=== PATIENT | male | born 1945 | race Caucasian/White ===

== ENCOUNTER 2017-12-27 14:53 | Emergency (ER) | payer OTHER ==
[~2017-12-27 14:53] MED LIST: HYDR1TAB2 PO; METF-384 PO; OMEP20CA9 PO; SIMV20TA5 PO; TAMS0.4C59 PO; TRAM-453 PO
[2017-12-27 15:09] VITALS: Ht 182.9 cm
[2017-12-27] MEDS ORDERED: BUPIVACAINE 0.25% 30 ML VIAL ONE (15:41)
[2017-12-27] MEDS ORDERED: BUPIVACAINE 0.5 % 5 MG/1 ML MPF 30ML VIAL INFIL ONE (15:45)
[2017-12-27] MEDS ORDERED: LIDOCAINE 1% BUFFERED INJ 20 ML VIAL INFIL ONE (15:45)
[2017-12-27] MEDS ORDERED: ROSU5TAB PO (15:51)
[2017-12-27] MEDS ORDERED: EMPA1TAB3 PO (15:51)
[2017-12-27] MEDS ORDERED: TAMS0.4C38 PO (15:51)
[2017-12-27] MEDS ORDERED: SERT25TA PO (15:51)
[2017-12-27] MEDS ORDERED: GLIM4TAB2 PO (15:51)
[2017-12-27] MEDS ORDERED: OMEP-331 PO (15:51)
[2017-12-27] MEDS ORDERED: SITA50TA3 PO (15:51)
[2017-12-27] MEDS ORDERED: DIPHTHERIA/TETANUS/PERTUSSIS 0.5 ML SYR/VIAL IM. ONE (16:15)
--- NOTE | 2017-12-27 17:15 | DIAGNOSTIC IMAGING REPORT ---
L FINGER(S) MIN 2 VIEWS ROUTINE HISTORY: 72 years-old Male left ring finger partial amputation acute partial limitation of the left fourth distal finger COMPARISON: None available TECHNIQUE: 3 views of the left fingers with attention to the fourth digit. FINDINGS: Soft tissue defect about the distal fourth finger with acute fracture of the distal phalangeal tuft, central and ulnar aspects. Bone fragments measuring up to 3 mm are displaced medially by approximately 4 mm. Moderate soft tissue swelling. The mineralized appearance of the bones. Degenerative changes of the carpus and radiocarpal joint with subcortical cystic changes of the lunate. No opaque foreign body. IMPRESSION: Acute partial amputation of the fourth distal digit with displaced comminuted fracture of the distal phalangeal tuft. The above report was generated using voice recognition software. It may contain grammatical, syntax or spelling errors. Electronically signed by: Ari Leon M.D. 12/27/2017 5:13 PM Dictated Date/Time: 12/27/2017 5:11 PM
[2017-12-27] MEDS ORDERED: CEFAZOLIN SOD 1000MG/7.5 ML IV PUSH IV STA (17:33)
[2017-12-27] MEDS ORDERED: HYDR-5688 PO (17:42)
[2017-12-27] MEDS ORDERED: CEPH500C PO (17:42)
[2017-12-27] MEDS ORDERED: NORCO 5/325MG HOME PACK PO ONE (17:45)
[2017-12-27 18:05] VITALS: BP 145/72; PULSE 88; TEMP 36.8; O2SAT 95
--- NOTE | 2017-12-27 22:20 | EMERGENCY ROOM VISIT NOTE ---
ED Visit Note First contact with patient: 15:21 Chief complaint: Left ring finger partial amputation HPI: This 72-year-old white male presents for evaluation of a partial finger amputation of his left ring finger. The patient was using a log splitter this afternoon and accidentally crushed his finger in the log splitter. When he pulled his finger out, part of the tip was removed. Bleeding was controlled with pressure. They deny any numbness, tingling, or loss of motion. No other complaints. His accompanies him today. Left hand dominant. Tetanus is believed to be out of-date. Pain is 9/10. Supplemental sheet was reviewed and signed. Previous surgeries: None Medical history: Diabetes, osteoarthritis, BPH, elevated cholesterol Current Medications: Reviewed and filed in patient's chart Allergies: NKDA Tetanus: 2009 Family History: Noncontributory. Parents are . Social History: . Retired. REVIEW OF SYSTEM: HEENT: No dizziness, visual problems, hearing loss, or tinnitus. There is no difficulty swallowing and no oral lesions are present. PULMONARY: No cough, shortness of breath, sputum production or hemoptysis. CARDIOVASCULAR: No chest pain, palpitations, shortness of breath or peripheral edema. GASTROINTESTINAL: No diarrhea, constipation, nausea, vomiting, or abdominal pain. GENITOURINARY: No dysuria, frequency, urgency or nocturia. NEUROLOGIC: No weakness, muscle tenderness, epilepsy or history of neurological problems. MUSCULOSKELETAL: No history of joint tenderness/swelling. Positive history of arthritis and arthralgias. SKIN: No rashes or lesions. PSYCHIATRIC: No history of depression or mental illness. ENDOCRINE: No history of thyroid disorders, or abnormal hair growth. Positive for diabetes. Physical Exam: Vitals: Afebrile. Reviewed and filed in patient's chart General: Well-developed, well-nourished, elderly white male, in no acute distress. Obvious discomfort. He is sitting on the bed. Alert and oriented. Skin: Warm and dry with good turgor. No rashes. No ecchymosis or erythema. The patient is not diaphoretic. No abrasions. The patient has a partial amputation of the left ring fingertip. His entire nail is missing. Two thirds of the nail bed is missing. Distal phalanx is exposed. There is no tissue to close at this time. Bleeding is vigorous. Musculoskeletal: Patient has intact motor function to the MCP, PIP, and DIP joints. No pain with palpation over the thumb, index, long, or little fingers. Neurologic: Gross sensation is intact across the finger including the exposed tip. Data: Radiographic imaging obtained today of the ring finger shows fracture and partial absence of the tuft. This was reviewed by me and read by radiology. Impression: Left ring finger partial amputation, distal phalanx, including the nail Procedure: Informed oral consent was obtained for exploration. Left ring finger was prepped with Betadine and draped with a sterile towel. Area was anesthetized using 3 mL 1% plain buffered lidocaine mixed with 3 mL bupivacaine 0.25% in a digital block. Thorough inspection was performed. There is exposed distal phalanx. A small bone fragment that was trapped within the soft tissue was excised sharply using iris scissors. There is no tissue to bring around the distal phalanx for closure. Wound was irrigated copiously using normal sterile saline under jet spray lavage. Wound was covered with Xeroform dressing , sterile gauze, sterile Sebastian, and Coban. A pressure dressing was applied. Hemostasis was achieved. Plan: Patient was educated regarding today's findings. Conservative care measures were discussed. IV was established. He was given Ancef 1 g IV. I did speak with Dr. Hyde by phone. He recommended covering the wound with sterile gauze, administering IV antibiotics, prescribing oral antibiotics, and having the patient follow-up in the office tomorrow with Dr. Baird for distal phalanx revision. This was discussed with the patient. He is in agreement. Ice and elevate intermittently as needed for discomfort. Tylenol and ibuprofen every 6 hours as needed for mild pain. Prescription was provided for Sparks 5 mg to be used every 6 hours as needed for more severe pain. Driving precautions were given. Home pack was provided. Prescription was also provided for Keflex 500 mg 4 times a day 5 days. Avoid soaking or getting the finger wet. Return to the ER for any acute changes or signs of infection. Tetanus was updated using Adacel 0.5 mL IM. Current/Historical Medications Scheduled Cephalexin Monohydrate (Keflex), 500 MG PO QID Empagliflozin (Jardiance), 25 MG PO DAILY Glimepiride (Glimepiride), 8 MG PO QAM Omeprazole (Omeprazole Dr), 20 MG PO DAILY Rosuvastatin Calcium (Crestor), 5 MG PO DAILY Sertraline (Zoloft), 25 MG PO DAILY Sitagliptin (Januvia), 50 MG PO DAILY Tamsulosin Hcl (Flomax), 0.4 MG PO DAILY Scheduled PRN Hydrocodone/Acetaminophen 5MG/325MG (Sparks 5MG/325MG), 1-2 TABLET PO Q6 PRN for Pain Allergies Coded Allergies: No Known Allergies (Unverified , 12/27/17) Vital Signs Date Time Temp Pulse Resp B/P (MAP) Pulse Ox O2 Delivery O2 Flow Rate FiO2 12/27/17 18:05 36.8 88 18 145/72 95 12/27/17 15:09 36.8 81 18 152/75 96 Room Air Medications Administered Medications (Trade) Dose Ordered Sig/Peterson Route Start Time Stop Time Status Last Admin Dose Admin Diphtheria/ Pertussis/Tetanus Vacc (Adacel Inj) 0.5 ml ONCE ONCE IM. 12/27/17 16:15 12/27/17 16:16 DC 12/27/17 16:11 0.5 ML Cefazolin Sodium (Cefazolin 1000mg Iv Push) 1,000 mg NOW STAT IV 12/27/17 17:33 12/27/17 17:34 DC 12/27/17 17:33 1,000 MG Acetaminophen/ Hydrocodone Bitart (Sparks 5/325mg Home Pack) 1 homepack UD ONCE PO 12/27/17 17:45 12/27/17 17:46 DC 12/27/17 17:54 1 HOMEPACK Departure Information Impression Primary Impression: Partial traumatic transphalangeal amputation of left ring fing... Dispostion Home / Self-Care Condition FAIR Prescriptions Hydrocodone/Acetaminophen 5MG/325MG (Sparks 5MG/325MG) Tab 1-2 TABLET PO Q6 Y for Pain, #12 TAB For Initial Treatment Prov: Magdi Pardo,P.A. 12/27/17 Cephalexin Monohydrate (Keflex) 500 Mg Cap 500 MG PO QID, #20 CAP Prov: Magdi Pardo,P.A. 12/27/17 Referrals Cipriano Baird MD Forms HOME CARE DOCUMENTATION FORM, SPECIAL NARCOTICS INSTRUCTIONS, IMPORTANT VISIT INFORMATION Patient Instructions My [facility] Additional Instructions Call [facility] for follow-up with Dr. Baird tomorrow Ice and elevate the finger frequently to reduce pain and swelling Keep the bandage in place Keflex 1 pill 4 times a day 5 days-start tomorrow morning Sparks 1-2 tablets every 6 hours as needed for pain-no driving If the bandage should bleed through, do not take it off. Pack more dressings on top of it. Your tetanus was updated today.
== END 2017-12-27 18:05 | disposition home or self-care (01) ==
LOC: C.EDB 14:55 → C.EDD 18:05
DX: S68.625A Partial traumatic transphalangeal amputation of left ring finger, initial encounter (principal); W31.89XA Contact with other specified machinery, initial encounter; Y93.89 Activity, other specified; Y99.8 Other external cause status; E11.9 Type 2 diabetes mellitus without complications; M19.90 Unspecified osteoarthritis, unspecified site; Z23 Encounter for immunization